=== PATIENT | female | born 1995 | race Caucasian/White ===

== ENCOUNTER 2017-06-15 13:18 | Emergency (ER) | payer OTHER ==
[~2017-06-15] VITALS: Ht 160 cm; Wt 77.1 kg
[2017-06-15] MEDS ORDERED: PRENATAL + DHA1 EAC1 (13:48)
== END 2017-06-15 17:17 | disposition home or self-care (01) ==
LOC: ER 13:18 → EDBD 13:44 → ER 17:17
DX: O98.512 Other viral diseases complicating pregnancy, second trimester (principal); B34.9 Viral infection, unspecified; O26.892 Other specified pregnancy related conditions, second trimester; J06.9 Acute upper respiratory infection, unspecified; Z34.01 Encounter for supervision of normal first pregnancy, first trimester

== ENCOUNTER 2017-07-18 12:45 | Outpatient (CLI) | payer OTHER ==
[~2017-07-18 12:45] MED LIST: PRENATAL + DHA1 EAC1
[2017-07-18] MEDS ORDERED: MACROBID 100 M100 MG PO (19:00)
== END 2017-07-18 20:20 | disposition home or self-care (01) ==
LOC: OBS/DEL 12:45
DX: O46.8X3 Other antepartum hemorrhage, third trimester (principal); Z34.03 Encounter for supervision of normal first pregnancy, third trimester